=== PATIENT | male | born 1995 | race Hispanic/Latino ===

== ENCOUNTER 2024-09-20 15:09 | Emergency (ER) | payer BC ==
[~2024-09-20] VITALS: Ht 180.3 cm; Wt 97.5 kg
[2024-09-20] MEDS: CYCLOBENZAPRINE HCL 10 MG TABLET PO ONE (15:18)
[2024-09-20] MEDS: ketOROlac 60 MG VIAL (30MG/ML) IM ONE (15:19)
[2024-09-20] MEDS: acetaMINOPHEN WITH coDEINE 1 TAB TAB PO ONE (15:19)
[2024-09-20] MEDS ORDERED: CYCL-309 PO (16:04)
[2024-09-20] MEDS ORDERED: METH4TAB3 PO (16:04)
[2024-09-20] MEDS ORDERED: IBUP-2077 PO (16:04)
[2024-09-20 16:07] VITALS: BP 138/89; PULSE 80; RESP 14; TEMP 97.7; O2SAT 98
== END 2024-09-20 16:11 | disposition home or self-care (01) ==
LOC: EDH 15:09
DX: M54.41 Lumbago with sciatica, right side (principal); X50.9XXA Other and unspecified overexertion or strenuous movements or postures, initial encounter; X50.0XXA Overexertion from strenuous movement or load, initial encounter; Y93.89 Activity, other specified; Y92.89 Other specified places as the place of occurrence of the external cause; Y99.8 Other external cause status
CPT/HCPCS: 99284; 72100; 96372; J1885